=== PATIENT | female | born 1995 | race Caucasian/White ===

== ENCOUNTER 2019-04-05 09:27 | Outpatient (CLI) | payer OTHER | END 2019-04-05 11:10 | disposition home or self-care (01) | LOC: OBT 09:27 → L-D 09:27 → OBT 11:10 | DX: O13.3 Gestational [pregnancy-induced] hypertension without significant proteinuria, third trimester (principal); Z3A.29 29 weeks gestation of pregnancy | CPT/HCPCS: 76818 ==

== ENCOUNTER 2019-04-05 10:55 | Emergency (ER) | payer BC, OTHER | END 2019-04-05 12:25 | disposition home or self-care (01) | LOC: FTE 10:55 | DX: O99.89 Other specified diseases and conditions complicating pregnancy, childbirth and the puerperium (principal); H66.91 Otitis media, unspecified, right ear; Z3A.30 30 weeks gestation of pregnancy | CPT/HCPCS: 99283; Z7502 ==

== ENCOUNTER 2019-04-29 13:50 | Outpatient (CLI) | payer OTHER ==
[2019-04-29 14:53] LABS: ADD UMIC YES; UR ASCORBIC ACID NEGATIVE (NEGATIVE); UR BACTERIA FEW /HPF (NONE SEEN); UR BILIRUBIN (Dip) NEGATIVE (NEGATIVE); UR BLOOD (Dip) NEGATIVE (NEGATIVE); UR CLARITY CLOUDY (CLEAR); UR COLOR YELLOW (YELLOW); UR GLUCOSE (Dip) NEGATIVE (NEGATIVE); UR KETONES (Dip) NEGATIVE (NEGATIVE); UR LEUKOCYTE ESTERASE (Dip) 1+ Leu/ul (NEGATIVE); UR MUCUS FEW /HPF (NONE SEEN); UR NITRITE (Dip) NEGATIVE (NEGATIVE); UR RBC 1 /HPF (0-5); UR SPECIFIC GRAVITY (Dip) 1.023 (1.003-1.030); UR SQUAMOUS EPITHELIAL CELL MANY /HPF (FEW); UR TOTAL PROTEIN (Dip) 1+ mg/dl (NEGATIVE); UR UROBILINOGEN (Dip) NEGATIVE (NEGATIVE); UR WBC 10 /HPF (0-5)
[2019-04-29 15:16] LABS: ADD MAN DIFF? NO
[2019-04-29 15:17] LABS: WHITE BLOOD COUNT 8.6 10^3/ul (4.8-10.8)
[2019-04-29 15:17] LABS: BASOPHILS % 0.2 % (0.0-2.0); EOSINOPHILS # 0.1 10^3/ul (0.0-0.5); EOSINOPHILS % 1.4 % (0.0-7.0); LYMPHOCYTES # 1.3 10^3/ul (0.8-2.9); LYMPHOCYTES % 14.7 % (15.0-51.0); MEAN CORPUSCULAR HEMOGLOBIN 23.5 pg (29.0-33.0); MEAN CORPUSCULAR HGB CONC 32.3 g/dl (32.0-37.0); MEAN CORPUSCULAR VOLUME 72.8 fl (82.0-101.0); MEAN PLATELET VOLUME 9.8 fl (7.4-10.4); MONOCYTE # 0.6 10^3/ul (0.3-0.9); MONOCYTES % 6.5 % (0.0-11.0); NEUTROPHIL # 6.6 10^3/ul (1.6-7.5); NEUTROPHILS % 76.9 % (39.0-77.0); PLATELET COUNT 338 10^3/UL (140-415); RED BLOOD COUNT 4.26 10^6/ul (4.20-5.40); RED CELL DISTRIBUTION WIDTH 15.9 % (11.5-14.5)
[2019-04-29] MEDS: LACTATED RINGER'S 1,000 ML IV (15:22)
[2019-04-29] MEDS: 1/2 NS + KCL 20 MEQ 1,000 ML IV (15:23)
[2019-04-29 15:40] LABS: ALANINE AMINOTRANSFERASE 10 IU/L (13-69); ALBUMIN 3.8 g/dl (3.3-4.9); ALKALINE PHOSPHATASE 128 IU/L (42-121); ANION GAP 11 (5-13); ASPARTATE AMINO TRANSFERASE 12 IU/L (15-46); BILIRUBIN,INDIRECT 0.3 mg/dl (0-1.1); BILIRUBIN,TOTAL 0.3 mg/dl (0.2-1.3); BLOOD UREA NITROGEN 13 mg/dl (7-20); CALCIUM 8.8 mg/dl (8.4-10.2); CARBON DIOXIDE 19 mmol/L (21-31); CHLORIDE 108 mmol/L (97-110); CREATININE 0.65 mg/dl (0.44-1.00); Estimated GFR > 60 mL/min (>60); GLUCOSE 85 mg/dl (70-220); POTASSIUM 3.6 mmol/L (3.5-5.1); SODIUM 138 mmol/L (135-144); TOTAL PROTEIN 7.6 g/dl (6.1-8.1)
== END 2019-04-29 18:40 | disposition home or self-care (01) ==
LOC: OBT 13:50 → L-D 13:53 → OBT 18:40
DX: O26.893 Other specified pregnancy related conditions, third trimester (principal); R19.7 Diarrhea, unspecified; R10.9 Unspecified abdominal pain; O21.2 Late vomiting of pregnancy; Z3A.33 33 weeks gestation of pregnancy
CPT/HCPCS: 36415; 76817; 76818; 80053; 81001; 85025; 87086; 96361; 96365

== ENCOUNTER 2019-05-26 12:08 | Inpatient (IN) | payer OTHER ==
[2019-05-26] MEDS ORDERED: CARBOPROST 250 MCG INJ IM ×2 (12:30→19:00)
[2019-05-26] MEDS ORDERED: METHYLERGONOVINE 0.2 MG INJ IM ×2 (12:30→19:00)
[2019-05-26] MEDS ORDERED: OXYTOCIN 30 UNITS/LR 500 ML IV ×2 (12:30→19:00)
[2019-05-26] MEDS ORDERED: MISOPROSTOL 200 MCG TAB PR ×2 (12:30→19:00)
[2019-05-26] MEDS: LACTATED RINGER'S 1,000 ML IV ×3 (12:37→22:46)
[2019-05-26 12:50] LABS: ADD MAN DIFF? NO
[2019-05-26 12:53] LABS: WHITE BLOOD COUNT 10.2 10^3/ul (4.8-10.8)
[2019-05-26 12:53] LABS: BASOPHILS % 0.4 % (0.0-2.0); EOSINOPHILS # 0.1 10^3/ul (0.0-0.5); EOSINOPHILS % 0.8 % (0.0-7.0); HEMATOCRIT 32.8 % (37.0-47.0); HEMOGLOBIN 10.5 g/dl (12.0-16.0); LYMPHOCYTES # 2.1 10^3/ul (0.8-2.9); LYMPHOCYTES % 20.7 % (15.0-51.0); MEAN CORPUSCULAR HEMOGLOBIN 23.2 pg (29.0-33.0); MEAN CORPUSCULAR VOLUME 72.4 fl (82.0-101.0); MEAN PLATELET VOLUME 9.9 fl (7.4-10.4); MONOCYTE # 0.5 10^3/ul (0.3-0.9); MONOCYTES % 4.6 % (0.0-11.0); NEUTROPHIL # 7.4 10^3/ul (1.6-7.5); NEUTROPHILS % 73.1 % (39.0-77.0); PLATELET COUNT 380 10^3/UL (140-415); RED BLOOD COUNT 4.53 10^6/ul (4.20-5.40); RED CELL DISTRIBUTION WIDTH 17.9 % (11.5-14.5)
[2019-05-26 13:14] LABS: PROTIME 12.3 Sec (11.9-14.9)
[2019-05-26 13:15] LABS: PARTIAL THROMBOPLASTIN TIME 30.4 Sec (23.0-35.0)
[2019-05-26] MEDS: ONDANSETRON 4 MG INJ IV (14:00)
[2019-05-26 14:01] LABS: HEPATITIS B SURFACE ANTIGEN NEGATIVE (NEGATIVE)
[2019-05-26] MEDS ORDERED: ONDANSETRON 4 MG INJ (14:03)
[2019-05-26] MEDS ORDERED: CITRIC ACID/NA CITRATE 30 ML CUP (14:03)
[2019-05-26] MEDS ORDERED: FENTAnyl 50 MCG/ML VIAL (14:10)
[2019-05-26] MEDS ORDERED: OXYTOCIN 10 UNIT INJ (14:11)
[2019-05-26] MEDS ORDERED: morphine SULFATE/PF (10 MG/10 ML) INJ (14:11)
[2019-05-26] MEDS ORDERED: METOCLOPRAMIDE 10 MG INJ (14:11)
[2019-05-26] MEDS ORDERED: TRIMETHOBENZAMIDE 100 MG/ML VIAL IM (14:30)
[2019-05-26] MEDS ORDERED: NALOXONE (0.4 MG/ML) INJ IV (14:30)
[2019-05-26] MEDS ORDERED: morphine 2 MG INJ IV ×2 (14:30)
[2019-05-26] MEDS ORDERED: DIPHENHYDRAMINE 50 MG INJ IV (14:30)
[2019-05-26] MEDS ORDERED: KETOROLAC 30 MG INJ IV (14:30)
[2019-05-26] MEDS ORDERED: ONDANSETRON 4 MG INJ IV (14:30)
[2019-05-26] MEDS ORDERED: NALBUPHINE HCL (10 MG/1 ML) INJ IV (14:30)
[2019-05-26] MEDS: CEFAZOLIN 2 GM/50 ML (PMX) 50 ML IVPB ×3 (15:03→21:19)
[2019-05-26 15:08] LABS: RAPID PLASMA REAGIN NONREACTIVE (NR)
[2019-05-26] MEDS: CITRIC ACID/NA CITRATE 30 ML CUP PO (16:25)
[2019-05-26] MEDS: AZITHROMYCIN 500MG/NS (PMX) 250 ML IVPB (16:30)
[2019-05-26] MEDS: OXYTOCIN 30 UNITS/LR 500 ML IV (16:34)
[2019-05-26] MEDS: KETOROLAC 30 MG INJ IV (16:50)
[2019-05-26] MEDS: ACETAMINOPHEN 500 MG TAB PO (16:53)
[2019-05-26] MEDS ORDERED: LANOLIN HPA 1 PKT TOP (19:00)
[2019-05-26] MEDS ORDERED: OXYCODONE/ACETAMINOPHEN (5/325) TAB PO (19:00)
[2019-05-26] MEDS ORDERED: NA PHOSPHATE/BIPHOS 133 ML ENEMA PR (19:00)
[2019-05-26] MEDS ORDERED: HYDROCODONE/APAP (5/325) TAB PO (19:00)
[2019-05-26] MEDS: SENNA/DOCUSATE NA (8.6MG/50MG) TAB PO (21:19)
[2019-05-26] MEDS: IBUPROFEN 800 MG TAB PO (22:00)
[2019-05-27 05:08] LABS: ADD MAN DIFF? NO
[2019-05-27 05:14] LABS: WHITE BLOOD COUNT 9.8 10^3/ul (4.8-10.8)
[2019-05-27 05:14] LABS: BASOPHILS % 0.3 % (0.0-2.0); EOSINOPHILS # 0.1 10^3/ul (0.0-0.5); EOSINOPHILS % 0.6 % (0.0-7.0); HEMATOCRIT 29.1 % (37.0-47.0); HEMOGLOBIN 9.3 g/dl (12.0-16.0); LYMPHOCYTES # 1.9 10^3/ul (0.8-2.9); LYMPHOCYTES % 19.4 % (15.0-51.0); MEAN CORPUSCULAR HEMOGLOBIN 23.3 pg (29.0-33.0); MEAN CORPUSCULAR VOLUME 72.9 fl (82.0-101.0); MEAN PLATELET VOLUME 9.9 fl (7.4-10.4); MONOCYTE # 0.5 10^3/ul (0.3-0.9); MONOCYTES % 5.1 % (0.0-11.0); NEUTROPHIL # 7.3 10^3/ul (1.6-7.5); PLATELET COUNT 279 10^3/UL (140-415); RED BLOOD COUNT 3.99 10^6/ul (4.20-5.40)
[2019-05-27] MEDS: IBUPROFEN 800 MG TAB PO ×3 (06:00→21:47)
[2019-05-27] MEDS: CEFAZOLIN 2 GM/50 ML (PMX) 50 ML IVPB ×2 (06:11→13:08)
[2019-05-27] MEDS: LACTATED RINGER'S 1,000 ML IV ×3 (07:30→23:30)
[2019-05-27] MEDS: SENNA/DOCUSATE NA (8.6MG/50MG) TAB PO ×2 (09:00→21:46)
[2019-05-27] MEDS: BISACODYL 10 MG SUPP PR (09:30)
[2019-05-27] MEDS: CLINDAMYCIN 300 MG CAP PO ×3 (12:28→23:42)
[2019-05-28] MEDS: CLINDAMYCIN 300 MG CAP PO ×2 (05:51→12:06)
[2019-05-28] MEDS: IBUPROFEN 800 MG TAB PO ×2 (05:51→13:14)
[2019-05-28] MEDS: LACTATED RINGER'S 1,000 ML IV (07:30)
[2019-05-28] MEDS: SENNA/DOCUSATE NA (8.6MG/50MG) TAB PO (09:56)
[2019-05-28] MEDS ORDERED: ACETAMINOPHEN 325 MG TAB PO (10:00)
[2019-05-29] MEDS ORDERED: DIPHTH/TET/ACEL PERTUSS (ADULT) 0.5 ML VIAL IM* (09:00)
[2019-05-29] MEDS ORDERED: MEASLES,MUMPS,RUBELLA VACCINE INJ SC* (09:00)
== END 2019-05-28 17:48 | disposition home or self-care (01) | DRG 787 ==
LOC: L-D 12:08 → MS1 18:00
PROVIDERS: Obstetrics & Gynecology
PROC: 10D00Z1 Extraction of Products of Conception, Low, Open Approach (ICD-10-PCS; principal; 2019-05-26 14:00)
DX: O36.5930 Maternal care for other known or suspected poor fetal growth, third trimester, not applicable or unspecified (principal); O41.03X0 Oligohydramnios, third trimester, not applicable or unspecified; O34.211 Maternal care for low transverse scar from previous cesarean delivery; Z3A.37 37 weeks gestation of pregnancy; Z37.0 Single live birth
CPT/HCPCS: 85025; 85610; 85730; 86592; 86850; 86900; 86901; 87340; 88307; 99464